=== PATIENT | female | born 1980 | race Caucasian/White ===

== ENCOUNTER 2020-02-17 19:30 | Emergency (ER) | payer MEDICAID ==
[~2020-02-17] VITALS: Ht 167.6 cm; Wt 61.4 kg
[2020-02-17 19:45] VITALS: Ht 167.6 cm; Wt 61.4 kg
[2020-02-17 20:18] LABS: BASOPHILS 0.3 % (0-2); EOSINOPHILS 2.2 % (0-7); HEMATOCRIT 33.6 % (36.0-48.0); HEMOGLOBIN 10.8 g/dL (12-16); IMMATURE GRANULOCYTES 0.1 % (0-5); LYMPHOCYTES 38.5 % (15-50); MCH 27.5 pg (26.0-34.0); MCHC 32.1 g/dL (31.0-37.0); MCV 85.5 fL (80.0-100.0); MONOCYTES 12.4 % (2-11); NEUTROPHILS 46.5 % (40-80); RBC 3.93 10x6/uL (4.00-5.40); WBC 6.8 10x3/uL (4.8-10.8)
[2020-02-17 20:31] LABS: ANION GAP 11.7 mmol/L (8-16); CALCIUM 8.8 mg/dL (8.5-10.1); CARBON DIOXIDE 26.4 mmol/L (21.0-32.0); CREATININE - SERUM 1.2 mg/dL (0.6-1.3); POTASSIUM - SERUM 4.1 mmol/L (3.5-5.1)
[2020-02-17 20:36] LABS: UDS - AMPHET POSITIVE QUAL (NEGATIVE); UDS - BARB NEGATIVE QUAL (NEGATIVE); UDS - BENZO NEGATIVE QUAL (NEGATIVE); UDS - PCP NEGATIVE QUAL (NEGATIVE); UDS - THC NEGATIVE QUAL (NEGATIVE)
[2020-02-17 20:45] LABS: ALBUMIN 4.2 g/dL (3.4-5.0); BILIRUBIN - TOTAL 0.45 mg/dL (0.2-1.3); C-REACTIVE PROTEIN 0.4 mg/dL (0.0-0.9); PROTEIN - SERUM 7.9 g/dL (6.4-8.2); THYROID STIMULATING HORMONE 1.63 uIU/mL (0.36-3.74)
[2020-02-17 20:46] LABS: PLATELET COUNT 354 10x3/uL (130-400)
[2020-02-17 20:54] LABS: BILIRUBIN NEGATIVE (NEGATIVE); KETONE NEGATIVE (NEGATIVE); NITRITE NEGATIVE (NEGATIVE); UROBILINOGEN NORMAL (NORMAL)
[2020-02-17 20:56] LABS: BACTERIA MODERATE /hpf (NONE SEEN); WHITE CELLS - URINE 25-50 /hpf (0-5)
[2020-02-17 20:59] LABS: UDS - COCAINE NEGATIVE QUAL (NEGATIVE); UDS - OPIATE NEGATIVE QUAL (NEGATIVE)
[2020-02-17] MEDS ORDERED: MACRODANTIN100 MG PO (21:03)
[2020-02-17 21:08] VITALS: BP 113/81
[2020-02-17 21:17] LABS: HCG URINE NEGATIVE (NEGATIVE)
== END 2020-02-17 21:16 | disposition home or self-care (01) ==
LOC: D.ER 19:30
PROVIDERS: Family Medicine
DX: N39.0 Urinary tract infection, site not specified (principal); R10.11 Right upper quadrant pain

== ENCOUNTER 2020-09-24 12:55 | Emergency (ER) | payer MEDICAID ==
[~2020-09-24] VITALS: Ht 167.6 cm; Wt 59.1 kg
[~2020-09-24 12:55] MED LIST: MACRODANTIN100 MG PO
[2020-09-24 13:11] VITALS: Ht 167.6 cm; Wt 59.1 kg
[2020-09-24] MEDS ORDERED: VOLTAREN75 MG PO (14:46)
[2020-09-24] MEDS ORDERED: BACLOFEN20 M1 PO (14:46)
== END 2020-09-24 15:42 | disposition home or self-care (01) ==
LOC: D.ER 12:55
DX: M54.9 Dorsalgia, unspecified (principal); M62.830 Muscle spasm of back